=== PATIENT | male | born 1945 | race Caucasian/White ===

== ENCOUNTER 2020-12-03 22:20 | Inpatient (IN) | payer BC, MEDICARE ==
[2020-12-03 22:58] LABS: #Monocytes 0.8 10x3/uL (0.0-1.1); #Neutrophils 10.8 10x3/uL (1.5-8.4); %Basophils 0.3 % (0.0-2.0); %Lymphocytes 4.3 % (18.0-47.0); %Monocytes 6.5 % (0.0-10.0); %Neutrophils 86.8 % (40.0-75.0); Hemoglobin 14.9 g/dL (13.5-17.5); Mean Corpuscular HGB CONC 34.7 g/dL (32.0-36.0); Mean Corpuscular Hemoglobin 29.9 pg (27.0-33.0); Mean Platelet Volume 11.1 fl (7.4-10.4); Platelet Count 300 10x3/uL (150-450); Red Blood Cell (RBC) Count 4.99 10x6/uL (4.32-5.72); White Blood Cell (WBC) Count 12.4 10x3/uL (3.5-10.5)
[2020-12-03 23:00] LABS: ALT (SGPT) 29 U/L (8-55); AST (SGOT) 28 U/L (5-34); Albumin 3.4 g/dL (3.4-4.8); Alkaline Phosphatase 86 U/L (40-110); Anion Gap 18 mmol/L (10-20); BUN (Urea Nitrogen) 30 mg/dL (8.4-25.7); Bilirubin, Total 0.6 mg/dL (0.2-1.2); Calc. Creatinine Clearance 0 mL/min (70-130); Calcium 9.2 mg/dL (7.8-10.44); Carbon Dioxide 26 mmol/L (23-31); Chloride 99 mmol/L (98-107); Globulin 3.2 g/dL (2.4-3.5); Glucose 305 mg/dL (83-110); Potassium 3.9 mmol/L (3.5-5.1); Protein, Total 6.6 g/dL (5.8-8.1); Sodium 139 mmol/L (136-145)
[2020-12-03] MEDS ORDERED: Ventolin HFA Inhaler 60 PUFF INHALER ONE (23:01)
[2020-12-03] MEDS ORDERED: Dexamethasone 10 MG/ML VIAL ONE (23:29)
[2020-12-04] MEDS ORDERED: Enoxaparin Sodium 100 MG/ML SYRINGE ONE (03:17)
[2020-12-04] MEDS ORDERED: Dextrose 50% Abboject 50 ML SYRINGE SLOW IVP PRN (05:57)
[2020-12-04] MEDS ORDERED: HYDROcodone/Acetaminophen 5/325 mg Tablet PO PRN (05:57)
[2020-12-04] MEDS ORDERED: Ondansetron PF 4 MG/2 ML Vial IVP PRN (05:57)
[2020-12-04] MEDS ORDERED: Zolpidem Tartrate 5 MG TAB PO PRN (05:57)
[2020-12-04] MEDS ORDERED: Dextrose 5% in Water 1,000 ML IV PRN (05:57)
[2020-12-04] MEDS ORDERED: Guaifenesin DM 100-10/5 ML UDCUP PO PRN (05:57)
[2020-12-04] MEDS ORDERED: Senokot S 8.6-50 MG TAB PO PRN (05:57)
[2020-12-04] MEDS ORDERED: Calcium Carbonate 500 MG ChewTAB PO PRN (05:57)
[2020-12-04] MEDS ORDERED: Sodium Chloride 0.9% 500 ML IV SCH (06:15)
[2020-12-04] MEDS ORDERED: Mometasone/Formoterol 200/5 60 PUFF INH SCH (06:45)
[2020-12-04] MEDS: Ascorbic Acid 500 mg Chewable Tablet PO SCH (09:21)
[2020-12-04] MEDS: Dexamethasone 20 MG/5 ML VIAL SLOW IVP SCH (09:22)
[2020-12-04] MEDS: Hydrochlorothiazide 25 MG TAB PO SCH (09:22)
[2020-12-04] MEDS: Cholecalciferol 1,000 UNITS (25 MCG) TAB PO SCH (09:22)
[2020-12-04] MEDS: Aspirin 81 mg Enteric Coated Tablet PO SCH (09:22)
[2020-12-04] MEDS: Losartan Potassium 50 MG TAB PO SCH (09:23)
[2020-12-04] MEDS: Zinc Gluconate 50 MG TAB PO SCH (09:23)
[2020-12-04] MEDS: Loratadine 10 MG TAB PO SCH (09:23)
[2020-12-04] MEDS: HumaLOG 300 UNITS/3 ML VIAL SC PRN ×2 (09:23→15:53)
[2020-12-04] MEDS ORDERED: REMDESIVIR 200 MG in Sodium Chloride 0.9% 250 ML 210 ML IV SCH (11:00)
[2020-12-04] MEDS: Enoxaparin Sodium 100 MG/ML SYRINGE SC SCH (15:53)
[2020-12-04] MEDS: Mometasone/Formoterol 200/5 60 PUFF INH SCH (20:48)
[2020-12-04 23:44] LABS: Bilirubin Neg (Negative); Blood, Urine Negative (Negative); Clarity Clear (Clear); Glucose, Urine (Dipstick) 100 mg/dL (Negative); Ketone, Urine Negative (Negative); Leukocyte Negative (Negative); Nitrite Negative (Negative); Protein, Urine (Dipstick) 15 mg/dl (Neg-Trace); Specific Gravity, Urine 1.015 (1.002-1.036); Urobilinogen Normal mg/dL (Less than 2)
[2020-12-05 00:18] LABS: Bacteria/HPF None Seen HPF (None Seen); Squamous Epithelial 0-3 HPF (0-3)
[2020-12-05 02:00] LABS: Legionella Urinary Ag Negative (Negative); Strep pneumo Urine Ag NEGATIVE (NEGATIVE)
[2020-12-05 04:09] LABS: #Monocytes 1.1 10x3/uL (0.0-1.1); #Neutrophils 12.8 10x3/uL (1.5-8.4); %Basophils 0.2 % (0.0-2.0); %Monocytes 7.1 % (0.0-10.0); Hemoglobin 13.7 g/dL (13.5-17.5); Mean Corpuscular HGB CONC 33.8 g/dL (32.0-36.0); Mean Corpuscular Hemoglobin 29.1 pg (27.0-33.0); Mean Platelet Volume 11.2 fl (7.4-10.4); Platelet Count 287 10x3/uL (150-450); RBC Distribution Width 14.1 % (11.5-14.5); Red Blood Cell (RBC) Count 4.71 10x6/uL (4.32-5.72); White Blood Cell (WBC) Count 14.9 10x3/uL (3.5-10.5)
[2020-12-05 04:22] LABS: Anion Gap 13 mmol/L (10-20); BUN (Urea Nitrogen) 22 mg/dL (8.4-25.7); CRP (Inflammatory) 3.57 mg/dL (= or < 0.5); Calc. Creatinine Clearance 124 mL/min (70-130); Calcium 8.8 mg/dL (7.8-10.44); Carbon Dioxide 28 mmol/L (23-31); Chloride 101 mmol/L (98-107); Glucose 156 mg/dL (83-110); Potassium 3.7 mmol/L (3.5-5.1); Sodium 138 mmol/L (136-145)
[2020-12-05 04:25] LABS: ALT (SGPT) 25 U/L (8-55); AST (SGOT) 21 U/L (5-34); Alkaline Phosphatase 66 U/L (40-110); Bilirubin, Direct 0.3 mg/dL (0.1-0.3); Bilirubin, Total 0.6 mg/dL (0.2-1.2); Protein, Total 6.1 g/dL (5.8-8.1)
[2020-12-05] MEDS: Enoxaparin Sodium 100 MG/ML SYRINGE SC SCH ×2 (04:51→15:50)
[2020-12-05] MEDS: Mometasone/Formoterol 200/5 60 PUFF INH SCH (07:54)
[2020-12-05] MEDS: Dexamethasone 20 MG/5 ML VIAL SLOW IVP SCH (08:04)
[2020-12-05] MEDS: Hydrochlorothiazide 25 MG TAB PO SCH (08:05)
[2020-12-05] MEDS: Aspirin 81 mg Enteric Coated Tablet PO SCH (08:05)
[2020-12-05] MEDS: Losartan Potassium 50 MG TAB PO SCH (08:05)
[2020-12-05] MEDS: Loratadine 10 MG TAB PO SCH (08:05)
[2020-12-05] MEDS: Ascorbic Acid 500 mg Chewable Tablet PO SCH (08:06)
[2020-12-05] MEDS: Cholecalciferol 1,000 UNITS (25 MCG) TAB PO SCH (08:06)
[2020-12-05] MEDS: Zinc Gluconate 50 MG TAB PO SCH (08:06)
[2020-12-05] MEDS: REMDESIVIR 100 MG in Sodium Chloride 0.9% 250 ML 230 ML IV SCH (11:27)
[2020-12-05] MEDS: HumaLOG 300 UNITS/3 ML VIAL SC PRN ×2 (15:46→22:42)
[2020-12-06 04:35] LABS: ALT (SGPT) 26 U/L (8-55); AST (SGOT) 18 U/L (5-34); Albumin 3.2 g/dL (3.4-4.8); Alkaline Phosphatase 77 U/L (40-110); Bilirubin, Direct 0.4 mg/dL (0.1-0.3); Bilirubin, Total 0.9 mg/dL (0.2-1.2); Protein, Total 6.7 g/dL (5.8-8.1)
[2020-12-06] MEDS: Enoxaparin Sodium 100 MG/ML SYRINGE SC SCH ×2 (05:00→15:39)
[2020-12-06] MEDS: Mometasone/Formoterol 200/5 60 PUFF INH SCH ×3 (05:20→19:42)
[2020-12-06] MEDS: Dexamethasone 20 MG/5 ML VIAL SLOW IVP SCH (07:55)
[2020-12-06] MEDS: Aspirin 81 mg Enteric Coated Tablet PO SCH (07:55)
[2020-12-06] MEDS: Hydrochlorothiazide 25 MG TAB PO SCH (07:55)
[2020-12-06] MEDS: Ascorbic Acid 500 mg Chewable Tablet PO SCH ×2 (07:56→07:57)
[2020-12-06] MEDS: Zinc Gluconate 50 MG TAB PO SCH (07:56)
[2020-12-06] MEDS: Loratadine 10 MG TAB PO SCH (07:56)
[2020-12-06] MEDS: Losartan Potassium 50 MG TAB PO SCH (07:56)
[2020-12-06] MEDS: Cholecalciferol 1,000 UNITS (25 MCG) TAB PO SCH (07:57)
[2020-12-06] MEDS: Ventolin HFA Inhaler 60 PUFF INHALER INH PRN (08:22)
[2020-12-06] MEDS: HumaLOG 300 UNITS/3 ML VIAL SC PRN ×3 (09:52→22:04)
[2020-12-06] MEDS: REMDESIVIR 100 MG in Sodium Chloride 0.9% 250 ML 230 ML IV SCH (12:32)
[2020-12-06] MEDS ORDERED: Polyethylene Glycol 3350 17 GM Packet PO PRN (20:24)
[2020-12-06] MEDS: Lantus 1000 UNITS/10 ML VIAL SC SCH (22:03)
[2020-12-07] MEDS: Enoxaparin Sodium 100 MG/ML SYRINGE SC SCH ×2 (05:00→16:07)
[2020-12-07 05:24] LABS: #Basophils 0.1 10x3/uL (0.0-0.2); #Monocytes 1.1 10x3/uL (0.0-1.1); #Neutrophils 16.2 10x3/uL (1.5-8.4); %Basophils 0.3 % (0.0-2.0); %Lymphocytes 4.1 % (18.0-47.0); %Monocytes 5.8 % (0.0-10.0); %Neutrophils 88.1 % (40.0-75.0); Hemoglobin 14.1 g/dL (13.5-17.5); Mean Corpuscular HGB CONC 33.6 g/dL (32.0-36.0); Mean Corpuscular Hemoglobin 29.1 pg (27.0-33.0); Mean Corpuscular Volume 86.8 fl (81.2-95.1); Mean Platelet Volume 11.5 fl (7.4-10.4); Platelet Count 368 10x3/uL (150-450); Red Blood Cell (RBC) Count 4.84 10x6/uL (4.32-5.72); White Blood Cell (WBC) Count 18.4 10x3/uL (3.5-10.5)
[2020-12-07 05:35] LABS: ALT (SGPT) 24 U/L (8-55); AST (SGOT) 17 U/L (5-34); Alkaline Phosphatase 70 U/L (40-110); Anion Gap 14 mmol/L (10-20); BUN (Urea Nitrogen) 24 mg/dL (8.4-25.7); Bilirubin, Direct 0.4 mg/dL (0.1-0.3); Bilirubin, Total 0.8 mg/dL (0.2-1.2); Calc. Creatinine Clearance 111 mL/min (70-130); Calcium 9.2 mg/dL (7.8-10.44); Carbon Dioxide 24 mmol/L (23-31); Chloride 102 mmol/L (98-107); Globulin 3.4 g/dL (2.4-3.5); Glucose 152 mg/dL (83-110); Potassium 3.7 mmol/L (3.5-5.1); Protein, Total 6.4 g/dL (5.8-8.1); Sodium 136 mmol/L (136-145)
[2020-12-07 09:01] LABS: ALV-art Gradient 400.275 mmHg (0-20); Base Excess (BEa) 3.4 mEq/L (-2.0 to +3.0); CO2 Tension 29.7 mmHg (35.0-45.0); Calcium, Ionized (arterial) 1.17 mmol/L (1.12-1.30); Carboxyhemoglobin (COHb) 0.3 gm% (0.0-3.0); Hemoglobin (Hb) 14.4 g/dL (14.0-18.0); O2 Tension (PaO2), arterial 61.7 mmHg (> 70.0); Potassium - ABG Lab 3.8 mmol/L (3.70-5.30); Puncture Site LRA; pH, Arterial 7.54 (7.35-7.45)
[2020-12-07] MEDS ORDERED: Enoxaparin Sodium 100 MG/ML SYRINGE ONE (09:24)
[2020-12-07] MEDS: Loratadine 10 MG TAB PO SCH (09:34)
[2020-12-07] MEDS: Losartan Potassium 50 MG TAB PO SCH (09:34)
[2020-12-07] MEDS: Zinc Gluconate 50 MG TAB PO SCH (09:34)
[2020-12-07] MEDS: Cholecalciferol 1,000 UNITS (25 MCG) TAB PO SCH (09:35)
[2020-12-07] MEDS: Aspirin 81 mg Enteric Coated Tablet PO SCH (09:35)
[2020-12-07] MEDS: Dexamethasone 20 MG/5 ML VIAL SLOW IVP SCH (09:38)
[2020-12-07] MEDS: Hydrochlorothiazide 25 MG TAB PO SCH (09:40)
[2020-12-07] MEDS: Ascorbic Acid 500 mg Chewable Tablet PO SCH (09:41)
[2020-12-07] MEDS: REMDESIVIR 100 MG in Sodium Chloride 0.9% 250 ML 230 ML IV SCH (12:11)
[2020-12-07] MEDS: HumaLOG 300 UNITS/3 ML VIAL SC PRN ×2 (16:15→21:57)
[2020-12-07] MEDS: Mometasone/Formoterol 200/5 60 PUFF INH SCH ×2 (18:00→21:30)
[2020-12-07] MEDS ORDERED: NIFEdipine XL 30 MG TAB PO SCH (21:30)
[2020-12-07] MEDS: Lantus 1000 UNITS/10 ML VIAL SC SCH (21:30)
[2020-12-08] MEDS: Enoxaparin Sodium 100 MG/ML SYRINGE SC SCH ×2 (03:37→17:01)
[2020-12-08 04:25] LABS: #Monocytes 1.1 10x3/uL (0.0-1.1); #Neutrophils 13.9 10x3/uL (1.5-8.4); %Basophils 0.2 % (0.0-2.0); %Lymphocytes 3.8 % (18.0-47.0); %Monocytes 6.8 % (0.0-10.0); Hemoglobin 13.8 g/dL (13.5-17.5); Mean Corpuscular Hemoglobin 29.2 pg (27.0-33.0); Mean Platelet Volume 11.1 fl (7.4-10.4); Platelet Count 375 10x3/uL (150-450); RBC Distribution Width 14.1 % (11.5-14.5); Red Blood Cell (RBC) Count 4.72 10x6/uL (4.32-5.72); White Blood Cell (WBC) Count 16.2 10x3/uL (3.5-10.5)
[2020-12-08 04:40] LABS: ALT (SGPT) 22 U/L (8-55); AST (SGOT) 12 U/L (5-34); Albumin 2.8 g/dL (3.4-4.8); Alkaline Phosphatase 78 U/L (40-110); Anion Gap 14 mmol/L (10-20); BUN (Urea Nitrogen) 22 mg/dL (8.4-25.7); Bilirubin, Direct 0.4 mg/dL (0.1-0.3); Bilirubin, Total 0.7 mg/dL (0.2-1.2); Calc. Creatinine Clearance 113 mL/min (70-130); Calcium 9.1 mg/dL (7.8-10.44); Carbon Dioxide 23 mmol/L (23-31); Chloride 105 mmol/L (98-107); Globulin 3.5 g/dL (2.4-3.5); Glucose 141 mg/dL (83-110); Potassium 4.1 mmol/L (3.5-5.1); Protein, Total 6.3 g/dL (5.8-8.1); Sodium 138 mmol/L (136-145)
[2020-12-08] MEDS: Mometasone/Formoterol 200/5 60 PUFF INH SCH ×2 (07:03→19:02)
[2020-12-08] MEDS: Ventolin HFA Inhaler 60 PUFF INHALER INH PRN (07:04)
[2020-12-08] MEDS: Dexamethasone 20 MG/5 ML VIAL SLOW IVP SCH (08:11)
[2020-12-08] MEDS: Hydrochlorothiazide 25 MG TAB PO SCH (08:12)
[2020-12-08] MEDS: Ascorbic Acid 500 mg Chewable Tablet PO SCH (08:12)
[2020-12-08] MEDS: Zinc Gluconate 50 MG TAB PO SCH (08:12)
[2020-12-08] MEDS: Losartan Potassium 50 MG TAB PO SCH (08:13)
[2020-12-08] MEDS: Aspirin 81 mg Enteric Coated Tablet PO SCH (08:14)
[2020-12-08] MEDS: Loratadine 10 MG TAB PO SCH (08:14)
[2020-12-08] MEDS: Cholecalciferol 1,000 UNITS (25 MCG) TAB PO SCH (08:15)
[2020-12-08] MEDS ORDERED: NIFEdipine XL 30 MG TAB PO SCH (09:00)
[2020-12-08] MEDS: REMDESIVIR 100 MG in Sodium Chloride 0.9% 250 ML 230 ML IV SCH (12:27)
[2020-12-08] MEDS: HumaLOG 300 UNITS/3 ML VIAL SC PRN (17:05)
[2020-12-08] MEDS ORDERED: Losartan 25 MG TAB PO SCH (21:00)
[2020-12-08] MEDS: Lantus 1000 UNITS/10 ML VIAL SC SCH (22:30)
[2020-12-09 07:27] LABS: #Basophils 0.1 10x3/uL (0.0-0.2); #Monocytes 1.6 10x3/uL (0.0-1.1); #Neutrophils 13.3 10x3/uL (1.5-8.4); %Basophils 0.5 % (0.0-2.0); %Eosinophils 0.1 % (0.0-6.0); %Lymphocytes 5.6 % (18.0-47.0); %Monocytes 9.6 % (0.0-10.0); Hemoglobin 14.2 g/dL (13.5-17.5); Mean Corpuscular HGB CONC 33.6 g/dL (32.0-36.0); Mean Corpuscular Volume 86.3 fl (81.2-95.1); Mean Platelet Volume 11.7 fl (7.4-10.4); Platelet Count 437 10x3/uL (150-450); White Blood Cell (WBC) Count 16.6 10x3/uL (3.5-10.5)
[2020-12-09 07:43] LABS: ALT (SGPT) 18 U/L (8-55); AST (SGOT) 12 U/L (5-34); Albumin 2.8 g/dL (3.4-4.8); Alkaline Phosphatase 76 U/L (40-110); Anion Gap 16 mmol/L (10-20); BUN (Urea Nitrogen) 24 mg/dL (8.4-25.7); Bilirubin, Total 0.8 mg/dL (0.2-1.2); Calc. Creatinine Clearance 113 mL/min (70-130); Calcium 9.1 mg/dL (7.8-10.44); Carbon Dioxide 20 mmol/L (23-31); Chloride 106 mmol/L (98-107); Globulin 3.4 g/dL (2.4-3.5); Glucose 122 mg/dL (83-110); Potassium 3.9 mmol/L (3.5-5.1); Protein, Total 6.2 g/dL (5.8-8.1); Sodium 138 mmol/L (136-145)
[2020-12-09] MEDS: Dexamethasone 20 MG/5 ML VIAL SLOW IVP SCH (08:27)
[2020-12-09] MEDS: Apixaban 5 MG TAB PO SCH ×2 (08:27→20:10)
[2020-12-09] MEDS: Cholecalciferol 1,000 UNITS (25 MCG) TAB PO SCH (08:27)
[2020-12-09] MEDS: Losartan Potassium 50 MG TAB PO SCH ×2 (08:27→20:10)
[2020-12-09] MEDS: Zinc Gluconate 50 MG TAB PO SCH (08:27)
[2020-12-09] MEDS: Aspirin 81 mg Enteric Coated Tablet PO SCH (08:27)
[2020-12-09] MEDS: Loratadine 10 MG TAB PO SCH (08:27)
[2020-12-09] MEDS: Hydrochlorothiazide 25 MG TAB PO SCH (08:27)
[2020-12-09] MEDS: Mometasone/Formoterol 200/5 60 PUFF INH SCH ×2 (09:44→19:46)
[2020-12-09 13:17] VITALS: BMI 25.7
[2020-12-09] MEDS: Acetaminophen 325 MG TAB PO PRN (22:30)
[2020-12-10] MEDS: Lantus 1000 UNITS/10 ML VIAL SC SCH ×2 (00:41→21:03)
[2020-12-10 05:32] LABS: #Basophils 0.1 10x3/uL (0.0-0.2); #Neutrophils 11.9 10x3/uL (1.5-8.4); %Basophils 0.5 % (0.0-2.0); %Eosinophils 0.1 % (0.0-6.0); %Lymphocytes 5.8 % (18.0-47.0); %Monocytes 12.7 % (0.0-10.0); Hemoglobin 14.7 g/dL (13.5-17.5); Mean Corpuscular HGB CONC 33.8 g/dL (32.0-36.0); Mean Corpuscular Hemoglobin 29.1 pg (27.0-33.0); Mean Platelet Volume 11.5 fl (7.4-10.4); Platelet Count 455 10x3/uL (150-450); RBC Distribution Width 14.1 % (11.5-14.5); Red Blood Cell (RBC) Count 5.06 10x6/uL (4.32-5.72); White Blood Cell (WBC) Count 15.4 10x3/uL (3.5-10.5)
[2020-12-10 05:48] LABS: ALT (SGPT) 17 U/L (8-55); AST (SGOT) 14 U/L (5-34); Albumin 2.9 g/dL (3.4-4.8); Alkaline Phosphatase 73 U/L (40-110); Anion Gap 15 mmol/L (10-20); BUN (Urea Nitrogen) 30 mg/dL (8.4-25.7); Bilirubin, Total 1.1 mg/dL (0.2-1.2); Calc. Creatinine Clearance 99 mL/min (70-130); Calcium 9.5 mg/dL (7.8-10.44); Carbon Dioxide 21 mmol/L (23-31); Chloride 106 mmol/L (98-107); Globulin 3.6 g/dL (2.4-3.5); Glucose 126 mg/dL (83-110); Potassium 4.1 mmol/L (3.5-5.1); Protein, Total 6.5 g/dL (5.8-8.1); Sodium 138 mmol/L (136-145)
[2020-12-10] MEDS: Apixaban 5 MG TAB PO SCH ×2 (08:33→20:59)
[2020-12-10] MEDS: Aspirin 81 mg Enteric Coated Tablet PO SCH (08:33)
[2020-12-10] MEDS: Dexamethasone 20 MG/5 ML VIAL SLOW IVP SCH (08:33)
[2020-12-10] MEDS: Hydrochlorothiazide 25 MG TAB PO SCH (08:33)
[2020-12-10] MEDS: Cholecalciferol 1,000 UNITS (25 MCG) TAB PO SCH (08:33)
[2020-12-10] MEDS: Ascorbic Acid 500 mg Chewable Tablet PO SCH (08:33)
[2020-12-10] MEDS: Loratadine 10 MG TAB PO SCH (08:33)
[2020-12-10] MEDS: Zinc Gluconate 50 MG TAB PO SCH (08:33)
[2020-12-10] MEDS: Losartan Potassium 50 MG TAB PO SCH ×2 (08:33→20:59)
[2020-12-10] MEDS: Mometasone/Formoterol 200/5 60 PUFF INH SCH ×2 (09:00→19:58)
[2020-12-10] MEDS: HumaLOG 300 UNITS/3 ML VIAL SC PRN (16:14)
[2020-12-11 06:11] LABS: #Basophils 0.1 10x3/uL (0.0-0.2); #Monocytes 1.6 10x3/uL (0.0-1.1); %Basophils 0.4 % (0.0-2.0); %Eosinophils 0.1 % (0.0-6.0); %Lymphocytes 5.9 % (18.0-47.0); %Monocytes 9.3 % (0.0-10.0); %Neutrophils 80.5 % (40.0-75.0); Mean Corpuscular Hemoglobin 29.2 pg (27.0-33.0); Mean Corpuscular Volume 85.8 fl (81.2-95.1); Mean Platelet Volume 11.5 fl (7.4-10.4); Platelet Count 479 10x3/uL (150-450); RBC Distribution Width 13.9 % (11.5-14.5); Red Blood Cell (RBC) Count 5.14 10x6/uL (4.32-5.72); White Blood Cell (WBC) Count 17.4 10x3/uL (3.5-10.5)
[2020-12-11 06:14] LABS: ALT (SGPT) 21 U/L (8-55); AST (SGOT) 14 U/L (5-34); Albumin 2.8 g/dL (3.4-4.8); Alkaline Phosphatase 79 U/L (40-110); Anion Gap 15 mmol/L (10-20); BUN (Urea Nitrogen) 40 mg/dL (8.4-25.7); Bilirubin, Total 0.9 mg/dL (0.2-1.2); Calc. Creatinine Clearance 97 mL/min (70-130); Calcium 9.4 mg/dL (7.8-10.44); Carbon Dioxide 21 mmol/L (23-31); Chloride 105 mmol/L (98-107); Globulin 3.7 g/dL (2.4-3.5); Glucose 115 mg/dL (83-110); Potassium 3.8 mmol/L (3.5-5.1); Protein, Total 6.5 g/dL (5.8-8.1); Sodium 137 mmol/L (136-145)
[2020-12-11] MEDS: Mometasone/Formoterol 200/5 60 PUFF INH SCH ×2 (08:10→19:40)
[2020-12-11] MEDS: Hydrochlorothiazide 25 MG TAB PO SCH (08:59)
[2020-12-11] MEDS: Apixaban 5 MG TAB PO SCH ×2 (08:59→21:44)
[2020-12-11] MEDS: Zinc Gluconate 50 MG TAB PO SCH (08:59)
[2020-12-11] MEDS: Cholecalciferol 1,000 UNITS (25 MCG) TAB PO SCH (08:59)
[2020-12-11] MEDS: Losartan Potassium 50 MG TAB PO SCH ×2 (08:59→21:44)
[2020-12-11] MEDS: Loratadine 10 MG TAB PO SCH (08:59)
[2020-12-11] MEDS: Aspirin 81 mg Enteric Coated Tablet PO SCH (08:59)
[2020-12-11] MEDS: Dexamethasone 20 MG/5 ML VIAL SLOW IVP SCH (08:59)
[2020-12-11] MEDS: Ascorbic Acid 500 mg Chewable Tablet PO SCH (08:59)
[2020-12-11] MEDS: HumaLOG 300 UNITS/3 ML VIAL SC PRN ×2 (13:05→17:34)
[2020-12-11] MEDS: Lantus 1000 UNITS/10 ML VIAL SC SCH (21:44)
[2020-12-12 08:12] LABS: #Basophils 0.1 10x3/uL (0.0-0.2); #Monocytes 1.7 10x3/uL (0.0-1.1); #Neutrophils 16.3 10x3/uL (1.5-8.4); %Basophils 0.4 % (0.0-2.0); %Lymphocytes 6.4 % (18.0-47.0); %Monocytes 8.3 % (0.0-10.0); %Neutrophils 81.6 % (40.0-75.0); Mean Corpuscular HGB CONC 33.3 g/dL (32.0-36.0); Mean Corpuscular Hemoglobin 28.8 pg (27.0-33.0); Mean Corpuscular Volume 86.6 fl (81.2-95.1); Mean Platelet Volume 11.8 fl (7.4-10.4); Platelet Count 409 10x3/uL (150-450); RBC Distribution Width 14.2 % (11.5-14.5); Red Blood Cell (RBC) Count 5.21 10x6/uL (4.32-5.72); White Blood Cell (WBC) Count 19.9 10x3/uL (3.5-10.5)
[2020-12-12] MEDS: Mometasone/Formoterol 200/5 60 PUFF INH SCH ×2 (08:13→18:45)
[2020-12-12 08:14] LABS: ALT (SGPT) 27 U/L (8-55); AST (SGOT) 23 U/L (5-34); Albumin 2.8 g/dL (3.4-4.8); Alkaline Phosphatase 81 U/L (40-110); Anion Gap 14 mmol/L (10-20); BUN (Urea Nitrogen) 45 mg/dL (8.4-25.7); Bilirubin, Total 1.2 mg/dL (0.2-1.2); Calc. Creatinine Clearance 111 mL/min (70-130); Calcium 9.3 mg/dL (7.8-10.44); Carbon Dioxide 20 mmol/L (23-31); Chloride 104 mmol/L (98-107); Globulin 3.6 g/dL (2.4-3.5); Glucose 130 mg/dL (83-110); Protein, Total 6.4 g/dL (5.8-8.1); Sodium 134 mmol/L (136-145)
[2020-12-12] MEDS: Losartan Potassium 50 MG TAB PO SCH ×2 (08:40→20:49)
[2020-12-12] MEDS: Dexamethasone 20 MG/5 ML VIAL SLOW IVP SCH (08:40)
[2020-12-12] MEDS: Zinc Gluconate 50 MG TAB PO SCH (08:40)
[2020-12-12] MEDS: Ascorbic Acid 500 mg Chewable Tablet PO SCH (08:40)
[2020-12-12] MEDS: Hydrochlorothiazide 25 MG TAB PO SCH (08:40)
[2020-12-12] MEDS: Aspirin 81 mg Enteric Coated Tablet PO SCH (08:41)
[2020-12-12] MEDS: Cholecalciferol 1,000 UNITS (25 MCG) TAB PO SCH (08:41)
[2020-12-12] MEDS: Apixaban 5 MG TAB PO SCH ×2 (08:41→20:51)
[2020-12-12] MEDS: Loratadine 10 MG TAB PO SCH (08:41)
[2020-12-12] MEDS: HumaLOG 300 UNITS/3 ML VIAL SC PRN (13:42)
[2020-12-12] MEDS: Lantus 1000 UNITS/10 ML VIAL SC SCH (20:49)
[2020-12-13 08:05] LABS: Hemoglobin 14.6 g/dL (13.5-17.5); Mean Corpuscular HGB CONC 33.3 g/dL (32.0-36.0); Mean Corpuscular Hemoglobin 29.1 pg (27.0-33.0); Mean Corpuscular Volume 87.6 fl (81.2-95.1); Mean Platelet Volume 11.5 fl (7.4-10.4); Platelet Count 407 10x3/uL (150-450); RBC Distribution Width 14.1 % (11.5-14.5); Red Blood Cell (RBC) Count 5.01 10x6/uL (4.32-5.72); White Blood Cell (WBC) Count 21.2 10x3/uL (3.5-10.5)
[2020-12-13 08:25] LABS: ALT (SGPT) 31 U/L (8-55); AST (SGOT) 17 U/L (5-34); Albumin 2.8 g/dL (3.4-4.8); Alkaline Phosphatase 75 U/L (40-110); Anion Gap 13 mmol/L (10-20); BUN (Urea Nitrogen) 52 mg/dL (8.4-25.7); Bilirubin, Total 1.2 mg/dL (0.2-1.2); Calc. Creatinine Clearance 99 mL/min (70-130); Calcium 9.4 mg/dL (7.8-10.44); Carbon Dioxide 24 mmol/L (23-31); Chloride 102 mmol/L (98-107); Globulin 3.5 g/dL (2.4-3.5); Glucose 127 mg/dL (83-110); Potassium 3.7 mmol/L (3.5-5.1); Protein, Total 6.3 g/dL (5.8-8.1); Sodium 135 mmol/L (136-145)
[2020-12-13 08:41] LABS: MDiff Complete? YES
[2020-12-13 08:46] LABS: Eosinophils 1 % (0-10); Lymphocytes 7 % (21-51); Monocytes 10 % (0-10); Neutrophil 82 % (42-75)
[2020-12-13 08:47] LABS: Platelet Morphology Comment Appears Adequate
[2020-12-13 08:48] LABS: RBC Morphology Normal
[2020-12-13] MEDS: Zinc Gluconate 50 MG TAB PO SCH (09:35)
[2020-12-13] MEDS: Aspirin 81 mg Enteric Coated Tablet PO SCH (09:54)
[2020-12-13] MEDS: Apixaban 5 MG TAB PO SCH ×2 (09:54→19:42)
[2020-12-13] MEDS: Losartan Potassium 50 MG TAB PO SCH ×2 (09:54→19:42)
[2020-12-13] MEDS: Cholecalciferol 1,000 UNITS (25 MCG) TAB PO SCH (09:54)
[2020-12-13] MEDS: Hydrochlorothiazide 25 MG TAB PO SCH (09:54)
[2020-12-13] MEDS: Dexamethasone 20 MG/5 ML VIAL SLOW IVP SCH (09:54)
[2020-12-13] MEDS: Ascorbic Acid 500 mg Chewable Tablet PO SCH (09:54)
[2020-12-13] MEDS: Loratadine 10 MG TAB PO SCH (09:55)
[2020-12-13] MEDS: HumaLOG 300 UNITS/3 ML VIAL SC PRN ×2 (13:09→19:13)
[2020-12-13] MEDS ORDERED: Azithromycin 500 MG in Sodium Chloride 0.9% 250 ML 250 ML IVPB SCH ×2 (18:30→20:00)
[2020-12-13] MEDS ORDERED: cefTRIAXone\\ROCEPHIN 1 GM in Sodium Chloride 0.9% 100 ML IVPB SCH (18:30)
[2020-12-13] MEDS: cefTRIAXone\\ROCEPHIN 1 GM in Sodium Chloride 0.9% 100 ML IVPB SCH (19:41)
[2020-12-13] MEDS: Acetaminophen 325 MG TAB PO PRN (19:42)
[2020-12-13] MEDS: Lantus 1000 UNITS/10 ML VIAL SC SCH (20:18)
[2020-12-13] MEDS: Mometasone/Formoterol 200/5 60 PUFF INH SCH ×2 (20:24→21:41)
[2020-12-14] MEDS: HumaLOG 300 UNITS/3 ML VIAL SC PRN ×4 (00:20→20:13)
[2020-12-14] MEDS: Mometasone/Formoterol 200/5 60 PUFF INH SCH ×2 (08:13→20:45)
[2020-12-14] MEDS: Cholecalciferol 1,000 UNITS (25 MCG) TAB PO SCH (08:40)
[2020-12-14] MEDS: Apixaban 5 MG TAB PO SCH ×2 (08:40→19:49)
[2020-12-14] MEDS: Zinc Gluconate 50 MG TAB PO SCH (08:40)
[2020-12-14] MEDS: Ascorbic Acid 500 mg Chewable Tablet PO SCH (08:40)
[2020-12-14] MEDS: Hydrochlorothiazide 25 MG TAB PO SCH (08:40)
[2020-12-14] MEDS: Dexamethasone 20 MG/5 ML VIAL SLOW IVP SCH (08:40)
[2020-12-14 08:41] LABS: Anion Gap 14 mmol/L (10-20); BUN (Urea Nitrogen) 40 mg/dL (8.4-25.7); Calc. Creatinine Clearance 115 mL/min (70-130); Calcium 9.4 mg/dL (7.8-10.44); Carbon Dioxide 23 mmol/L (23-31); Chloride 105 mmol/L (98-107); Glucose 90 mg/dL (83-110); Potassium 3.7 mmol/L (3.5-5.1); Sodium 138 mmol/L (136-145)
[2020-12-14] MEDS: Losartan Potassium 50 MG TAB PO SCH ×2 (08:41→19:49)
[2020-12-14] MEDS: Aspirin 81 mg Enteric Coated Tablet PO SCH (08:41)
[2020-12-14] MEDS: Loratadine 10 MG TAB PO SCH (08:41)
[2020-12-14 08:52] LABS: Hemoglobin 14.7 g/dL (13.5-17.5); Mean Corpuscular HGB CONC 33.9 g/dL (32.0-36.0); Mean Corpuscular Hemoglobin 29.4 pg (27.0-33.0); Mean Corpuscular Volume 86.6 fl (81.2-95.1); Mean Platelet Volume 11.4 fl (7.4-10.4); Platelet Count 394 10x3/uL (150-450); RBC Distribution Width 13.9 % (11.5-14.5); White Blood Cell (WBC) Count 24.1 10x3/uL (3.5-10.5)
[2020-12-14 09:12] LABS: MDiff Complete? YES
[2020-12-14 09:15] LABS: Lymphocytes 8 % (21-51); Monocytes 5 % (0-10); Neutrophil 87 % (42-75)
[2020-12-14 09:16] LABS: Platelet Morphology Comment Appears Adequate
[2020-12-14 09:17] LABS: RBC Morphology Normal
[2020-12-14] MEDS: cefTRIAXone\\ROCEPHIN 1 GM in Sodium Chloride 0.9% 100 ML IVPB SCH (19:49)
[2020-12-14] MEDS: Lantus 1000 UNITS/10 ML VIAL SC SCH (20:12)
[2020-12-14] MEDS: Azithromycin 500 MG in Sodium Chloride 0.9% 250 ML 250 ML IVPB SCH (21:28)
[2020-12-15 05:39] LABS: #Basophils 0.1 10x3/uL (0.0-0.2); #Monocytes 1.5 10x3/uL (0.0-1.1); #Neutrophils 15.4 10x3/uL (1.5-8.4); %Basophils 0.3 % (0.0-2.0); %Monocytes 8.1 % (0.0-10.0); %Neutrophils 81.3 % (40.0-75.0); Hemoglobin 14.1 g/dL (13.5-17.5); Mean Corpuscular HGB CONC 33.2 g/dL (32.0-36.0); Mean Corpuscular Hemoglobin 29.2 pg (27.0-33.0); Mean Platelet Volume 11.4 fl (7.4-10.4); Platelet Count 362 10x3/uL (150-450); RBC Distribution Width 13.9 % (11.5-14.5); Red Blood Cell (RBC) Count 4.83 10x6/uL (4.32-5.72); White Blood Cell (WBC) Count 18.9 10x3/uL (3.5-10.5)
[2020-12-15 05:47] LABS: Anion Gap 12 mmol/L (10-20); BUN (Urea Nitrogen) 32 mg/dL (8.4-25.7); Calc. Creatinine Clearance 118 mL/min (70-130); Calcium 9.4 mg/dL (7.8-10.44); Carbon Dioxide 24 mmol/L (23-31); Chloride 103 mmol/L (98-107); Glucose 90 mg/dL (83-110); Potassium 3.8 mmol/L (3.5-5.1); Sodium 135 mmol/L (136-145)
[2020-12-15] MEDS: Mometasone/Formoterol 200/5 60 PUFF INH SCH ×2 (08:27→19:55)
[2020-12-15] MEDS: Loratadine 10 MG TAB PO SCH (08:29)
[2020-12-15] MEDS: Hydrochlorothiazide 25 MG TAB PO SCH (08:29)
[2020-12-15] MEDS: Dexamethasone 20 MG/5 ML VIAL SLOW IVP SCH (08:29)
[2020-12-15] MEDS: Aspirin 81 mg Enteric Coated Tablet PO SCH (08:29)
[2020-12-15] MEDS: Ascorbic Acid 500 mg Chewable Tablet PO SCH (08:29)
[2020-12-15] MEDS: Apixaban 5 MG TAB PO SCH ×2 (08:29→20:09)
[2020-12-15] MEDS: Losartan Potassium 50 MG TAB PO SCH ×2 (08:29→20:09)
[2020-12-15] MEDS: Cholecalciferol 1,000 UNITS (25 MCG) TAB PO SCH (08:29)
[2020-12-15] MEDS: Zinc Gluconate 50 MG TAB PO SCH (08:29)
[2020-12-15] MEDS: HumaLOG 300 UNITS/3 ML VIAL SC PRN ×3 (14:19→20:37)
[2020-12-15] MEDS ORDERED: Sodium Chloride 0.9% 250 ML 250 ML ONE (20:00)
[2020-12-15] MEDS ORDERED: Azithromycin 500 MG VIAL ONE (20:00)
[2020-12-15] MEDS: cefTRIAXone\\ROCEPHIN 1 GM in Sodium Chloride 0.9% 100 ML IVPB SCH (20:09)
[2020-12-15] MEDS: Azithromycin 500 MG in Sodium Chloride 0.9% 250 ML 250 ML IVPB SCH (20:10)
[2020-12-15] MEDS: Lantus 1000 UNITS/10 ML VIAL SC SCH (20:38)
[2020-12-16] MEDS: HumaLOG 300 UNITS/3 ML VIAL SC PRN ×3 (05:33→18:07)
[2020-12-16 05:44] LABS: #Monocytes 1.1 10x3/uL (0.0-1.1); #Neutrophils 10.9 10x3/uL (1.5-8.4); %Basophils 0.1 % (0.0-2.0); %Eosinophils 0.1 % (0.0-6.0); %Monocytes 7.8 % (0.0-10.0); %Neutrophils 79.8 % (40.0-75.0); Hemoglobin 13.7 g/dL (13.5-17.5); Mean Corpuscular HGB CONC 33.9 g/dL (32.0-36.0); Mean Corpuscular Volume 85.6 fl (81.2-95.1); Mean Platelet Volume 11.7 fl (7.4-10.4); Platelet Count 315 10x3/uL (150-450); Red Blood Cell (RBC) Count 4.72 10x6/uL (4.32-5.72); White Blood Cell (WBC) Count 13.7 10x3/uL (3.5-10.5)
[2020-12-16 06:02] LABS: Anion Gap 13 mmol/L (10-20); BUN (Urea Nitrogen) 32 mg/dL (8.4-25.7); Calc. Creatinine Clearance 115 mL/min (70-130); Calcium 9.3 mg/dL (7.8-10.44); Carbon Dioxide 26 mmol/L (23-31); Chloride 103 mmol/L (98-107); Glucose 122 mg/dL (83-110); Potassium 3.6 mmol/L (3.5-5.1); Sodium 138 mmol/L (136-145)
[2020-12-16] MEDS: Mometasone/Formoterol 200/5 60 PUFF INH SCH ×2 (08:09→19:45)
[2020-12-16] MEDS: Loratadine 10 MG TAB PO SCH (08:11)
[2020-12-16] MEDS: Zinc Gluconate 50 MG TAB PO SCH (08:11)
[2020-12-16] MEDS: Aspirin 81 mg Enteric Coated Tablet PO SCH (08:11)
[2020-12-16] MEDS: Losartan Potassium 50 MG TAB PO SCH ×2 (08:11→21:18)
[2020-12-16] MEDS: Hydrochlorothiazide 25 MG TAB PO SCH (08:11)
[2020-12-16] MEDS: Ascorbic Acid 500 mg Chewable Tablet PO SCH (08:12)
[2020-12-16] MEDS: Apixaban 5 MG TAB PO SCH ×2 (08:12→21:18)
[2020-12-16] MEDS: Dexamethasone 20 MG/5 ML VIAL SLOW IVP SCH (08:12)
[2020-12-16] MEDS: Cholecalciferol 1,000 UNITS (25 MCG) TAB PO SCH (08:12)
[2020-12-16] MEDS: Azithromycin 500 MG in Sodium Chloride 0.9% 250 ML 250 ML IVPB SCH (21:23)
[2020-12-16] MEDS: cefTRIAXone\\ROCEPHIN 1 GM in Sodium Chloride 0.9% 100 ML IVPB SCH (21:23)
[2020-12-16] MEDS: Lantus 1000 UNITS/10 ML VIAL SC SCH (21:25)
[2020-12-17 07:03] LABS: #Neutrophils 9.6 10x3/uL (1.5-8.4); %Basophils 0.2 % (0.0-2.0); %Eosinophils 0.2 % (0.0-6.0); %Lymphocytes 9.9 % (18.0-47.0); %Neutrophils 79.6 % (40.0-75.0); Hemoglobin 13.4 g/dL (13.5-17.5); Mean Corpuscular Volume 85.3 fl (81.2-95.1); Mean Platelet Volume 11.3 fl (7.4-10.4); Platelet Count 292 10x3/uL (150-450); RBC Distribution Width 14.1 % (11.5-14.5); Red Blood Cell (RBC) Count 4.62 10x6/uL (4.32-5.72); White Blood Cell (WBC) Count 12.1 10x3/uL (3.5-10.5)
[2020-12-17 07:09] LABS: Anion Gap 11 mmol/L (10-20); BUN (Urea Nitrogen) 28 mg/dL (8.4-25.7); Calc. Creatinine Clearance 120 mL/min (70-130); Carbon Dioxide 27 mmol/L (23-31); Chloride 105 mmol/L (98-107); Glucose 117 mg/dL (83-110); Potassium 3.7 mmol/L (3.5-5.1); Sodium 139 mmol/L (136-145)
[2020-12-17] MEDS: Aspirin 81 mg Enteric Coated Tablet PO SCH (09:48)
[2020-12-17] MEDS: Losartan Potassium 50 MG TAB PO SCH ×2 (09:48→22:17)
[2020-12-17] MEDS: Dexamethasone 20 MG/5 ML VIAL SLOW IVP SCH (09:48)
[2020-12-17] MEDS: Apixaban 5 MG TAB PO SCH ×2 (09:48→22:17)
[2020-12-17] MEDS: Ascorbic Acid 500 mg Chewable Tablet PO SCH (09:48)
[2020-12-17] MEDS: Cholecalciferol 1,000 UNITS (25 MCG) TAB PO SCH (09:48)
[2020-12-17] MEDS: Loratadine 10 MG TAB PO SCH (09:48)
[2020-12-17] MEDS: Hydrochlorothiazide 25 MG TAB PO SCH (09:48)
[2020-12-17] MEDS: Zinc Gluconate 50 MG TAB PO SCH (09:50)
[2020-12-17] MEDS: Mometasone/Formoterol 200/5 60 PUFF INH SCH (19:20)
[2020-12-17] MEDS: Azithromycin 500 MG in Sodium Chloride 0.9% 250 ML 250 ML IVPB SCH (22:19)
[2020-12-17] MEDS: cefTRIAXone\\ROCEPHIN 1 GM in Sodium Chloride 0.9% 100 ML IVPB SCH (22:19)
[2020-12-17] MEDS: Lantus 1000 UNITS/10 ML VIAL SC SCH (22:20)
[2020-12-18] MEDS: Apixaban 5 MG TAB PO SCH ×2 (09:59→20:16)
[2020-12-18] MEDS: Loratadine 10 MG TAB PO SCH (10:00)
[2020-12-18] MEDS: Dexamethasone 20 MG/5 ML VIAL SLOW IVP SCH (10:00)
[2020-12-18] MEDS: Ascorbic Acid 500 mg Chewable Tablet PO SCH (10:00)
[2020-12-18] MEDS: Hydrochlorothiazide 25 MG TAB PO SCH (10:00)
[2020-12-18] MEDS: Zinc Gluconate 50 MG TAB PO SCH (10:00)
[2020-12-18] MEDS: Losartan 25 MG TAB PO SCH (10:00)
[2020-12-18] MEDS: Cholecalciferol 1,000 UNITS (25 MCG) TAB PO SCH (10:00)
[2020-12-18] MEDS: Aspirin 81 mg Enteric Coated Tablet PO SCH (10:00)
[2020-12-18] MEDS: Mometasone/Formoterol 200/5 60 PUFF INH SCH ×2 (14:15→20:35)
[2020-12-18] MEDS: cefTRIAXone\\ROCEPHIN 1 GM in Sodium Chloride 0.9% 100 ML IVPB SCH (20:16)
[2020-12-18] MEDS: Azithromycin 500 MG in Sodium Chloride 0.9% 250 ML 250 ML IVPB SCH (20:17)
[2020-12-18] MEDS: Acetaminophen 325 MG TAB PO PRN (20:17)
[2020-12-18] MEDS: Lantus 1000 UNITS/10 ML VIAL SC SCH (20:40)
[2020-12-19] MEDS: HumaLOG 300 UNITS/3 ML VIAL SC PRN ×3 (00:15→18:23)
[2020-12-19] MEDS: Mometasone/Formoterol 200/5 60 PUFF INH SCH ×3 (00:18→20:10)
[2020-12-19] MEDS: Loratadine 10 MG TAB PO SCH (08:18)
[2020-12-19] MEDS: Zinc Gluconate 50 MG TAB PO SCH (08:18)
[2020-12-19] MEDS: Losartan 25 MG TAB PO SCH (08:18)
[2020-12-19] MEDS: Cholecalciferol 1,000 UNITS (25 MCG) TAB PO SCH (08:18)
[2020-12-19] MEDS: Hydrochlorothiazide 25 MG TAB PO SCH (08:18)
[2020-12-19] MEDS: Dexamethasone 20 MG/5 ML VIAL SLOW IVP SCH (08:18)
[2020-12-19] MEDS: Ascorbic Acid 500 mg Chewable Tablet PO SCH (08:18)
[2020-12-19] MEDS: Aspirin 81 mg Enteric Coated Tablet PO SCH (08:18)
[2020-12-19] MEDS: Apixaban 5 MG TAB PO SCH ×2 (08:18→21:16)
[2020-12-19] MEDS: Acetaminophen 325 MG TAB PO PRN (21:17)
[2020-12-19] MEDS: Lantus 1000 UNITS/10 ML VIAL SC SCH (21:17)
[2020-12-20] MEDS: HumaLOG 300 UNITS/3 ML VIAL SC PRN ×2 (00:01→12:10)
[2020-12-20] MEDS: Mometasone/Formoterol 200/5 60 PUFF INH SCH (07:43)
[2020-12-20] MEDS: Zinc Gluconate 50 MG TAB PO SCH (08:09)
[2020-12-20] MEDS: Loratadine 10 MG TAB PO SCH (08:09)
[2020-12-20] MEDS: Hydrochlorothiazide 25 MG TAB PO SCH (08:09)
[2020-12-20] MEDS: Aspirin 81 mg Enteric Coated Tablet PO SCH (08:09)
[2020-12-20] MEDS: Dexamethasone 20 MG/5 ML VIAL SLOW IVP SCH (08:09)
[2020-12-20] MEDS: Apixaban 5 MG TAB PO SCH (08:09)
[2020-12-20] MEDS: Cholecalciferol 1,000 UNITS (25 MCG) TAB PO SCH (08:10)
[2020-12-20] MEDS: Ascorbic Acid 500 mg Chewable Tablet PO SCH (08:10)
[2020-12-20] MEDS: Losartan 25 MG TAB PO SCH (08:10)
[2020-12-20 17:12] VITALS: BP 135/69; TEMP 97.9
== END 2020-12-20 19:50 | DRG 871 ==
LOC: CSHERS 22:20 → CSHICU 12-04 06:37 → CSHTELE 12-08 20:43
PROVIDERS: ADMIT Family Medicine; ATTEND Hospitalist
PROC: XW033E5 Introduction of Remdesivir Anti-infective into Peripheral Vein, Percutaneous Approach, New Technology Group 5 (ICD-10-PCS; principal; 2020-12-04)
PROC: 8E0ZXY6 Isolation (ICD-10-PCS; 2020-12-04)
DX: A41.89 Other specified sepsis (principal); U07.1 COVID-19; J12.82 Pneumonia due to coronavirus disease 2019; J96.01 Acute respiratory failure with hypoxia; I26.99 Other pulmonary embolism without acute cor pulmonale; Z79.84 Long term (current) use of oral hypoglycemic drugs; I10 Essential (primary) hypertension; E11.65 Type 2 diabetes mellitus with hyperglycemia; J43.9 Emphysema, unspecified; R79.89 Other specified abnormal findings of blood chemistry; H91.90 Unspecified hearing loss, unspecified ear; R53.81 Other malaise; Z79.82 Long term (current) use of aspirin; Z79.891 Long term (current) use of opiate analgesic; Z79.899 Other long term (current) drug therapy
CPT/HCPCS: 36415; 36416; 36600; 71045; 71275; 80048; 80053; 80076; 81001; 82728; 82805; 83036; 83880; 84145; 84484; 85025; 85379; 86140; 87449; 87899; 93005; 93306; 93970; 94640; 94664; 94760; 96372; 96374; J0456; J0696; J1100; J1650; J1815; J3490; J7050